=== PATIENT | male | born 1975 ===

== ENCOUNTER → 2020-06-09 08:37 | Outpatient (BNVA) | payer OTHER, SELFPAY | PROVIDERS: PCP Physician Assistant Medical; Referring Provider Physician Assistant; Visit Provider Surgery | DX: Z76.89 Persons encountering health services in other specified circumstances (principal) ==

== ENCOUNTER 2020-06-14 16:12 | Outpatient (REF) | payer OTHER, SELFPAY ==
--- NOTE | 2020-06-14 16:14 | CT_ITS ---
EXAMINATION: CT ABDOMEN AND PELVIS WITHOUT CONTRAST CLINICAL INFORMATION: Lower abdominal pain COMPARISON: 09/12/2019 TECHNIQUE: Multidetector volumetric imaging was performed from the superior aspect of the liver through the pubic symphysis. Sagittal and coronal reformatted images were obtained on the technologist's workstation. This CT examination was performed using dose optimization techniques as appropriate, variously including the following: *Automated exposure control *Adjustment of mA and/or kV according to patient size (this includes techniques or standardized protocols for targeted exams where dose is matched to indication/reason for exam; i.e. extremities or head) *Use of iterative reconstruction technique DLP: 365 mGy-cm FINDINGS: LUNG BASES: Calcified left lower lobe granuloma. LIVER, GALLBLADDER, AND BILIARY TREE: Liver is slightly hypoattenuating relative to the spleen suggesting underlying hepatic steatosis. There is likely focal fatty sparing adjacent the gallbladder fossa. No suspicious or concerning focal liver lesion seen. The gallbladder is unremarkable with no evidence of radiopaque gallstones, gallbladder wall thickening, or obvious pericholecystic inflammatory changes. PANCREAS: Unremarkable. SPLEEN: Unremarkable. ADRENAL GLANDS: No adrenal mass. KIDNEYS AND URETERS: Punctate 1 mm left upper pole renal calculus. 3 mm left mid-lower renal calculus. There are 2 right mid-lower calculi measuring 1 mm and 2 mm. No hydronephrosis or hydroureter seen no ureteral calculi are present.. BLADDER: No bladder calculi. GASTROINTESTINAL TRACT: Stomach and small bowel are nondilated. Normal appendix. Is a surgical anastomosis across the proximal transverse colon and another anastomosis across the sigmoid colon. Both appear patent. There is a mild stool burden. Scattered colonic diverticulosis. No evidence of colitis or diverticulitis ABDOMINAL WALL: Fat-containing umbilical hernia. Midline laparotomy changes. There are is scarring of the anterior right lower quadrant possibly a site of prior stoma. Fat-containing direct left inguinal hernia. LYMPH NODES: No lymphadenopathy. VASCULAR: Normal caliber abdominal aorta. PELVIC VISCERA: Coarse prostatic calcifications are present. Mild prostatomegaly. OSSEOUS STRUCTURES: Multilevel degenerative changes of the thoracolumbar spine. No acute or suspicious osseous abnormality. CT/CT abdomen pelvis wo con IMPRESSION: No acute CT findings to explain lower abdominal pain. No significant change from prior study 09/12/2019. Tiny nonobstructing bilateral renal calculi 1-3 mm. No evidence of obstructive uropathy. Colonic anastomoses of the proximal transverse colon and sigmoid colon are seen. These are patent without evidence of obstruction or perforation. No evidence of bowel obstruction, colitis, or diverticulitis.
== END 2020-06-14 16:13 | disposition home or self-care (01) ==
LOC: HO.CT 16:12
PROVIDERS: Visit Provider Surgery
DX: R10.30 Lower abdominal pain, unspecified (principal)
CPT/HCPCS: 74176

== ENCOUNTER → 2020-06-22 13:30 | Outpatient (BNVA) | payer OTHER, SELFPAY | PROVIDERS: PCP Physician Assistant Medical; Visit Provider Surgery | DX: Z76.89 Persons encountering health services in other specified circumstances (principal) ==

== ENCOUNTER → 2021-10-04 12:03 | Outpatient (BNVA) | payer OTHER, SELFPAY | PROVIDERS: PCP Physician Assistant Medical; Referring Provider Physician Assistant Medical; Visit Provider Surgery | DX: K64.9 Unspecified hemorrhoids (principal) | CPT/HCPCS: 46600 ==

== ENCOUNTER 2022-03-11 08:13 | Emergency (ER) | payer OTHER, SELFPAY ==
[2022-03-11 08:36] VITALS: BP 143/91; PULSE 100; RESP 18; TEMP 36.9; O2SAT 98
[2022-03-11 11:09] VITALS: BP 155/89; PULSE 96; RESP 18; TEMP 36.8; O2SAT 99; BMI 27.3
[2022-03-11 12:42] VITALS: BP 147/86; PULSE 98; RESP 20; TEMP 36.9; O2SAT 99
--- NOTE | 2022-03-11 13:08 | ED_ITS ---
HPI - General Adult General Chief complaint: Extremity Injury, Lower Stated complaint: R side back pain down to leg Time Seen by Provider: 03/11/22 12:46 Source: patient Mode of arrival: ambulatory Limitations: no limitations History of Present Illness HPI narrative: For 46-year-old male presents to the ED for back pain radiating down right leg. Patient states history of back arthritis. Patient states having these symptoms before but has exacerbated the past 2 weeks. Patient also states pain on range of motion and after heavy lifting. Patient denies any history of urinary/bowel incontinence, abdominal pain, nausea, vomiting, recent trauma, hematuria, dysuria, fever, or chills. Patient denies any history of immunocompromised disease or IV drug use. Patient states last did cocaine ( nostril) in 1994. Patient denies dragging of leg. Related Data Home Medications Medication Instructions Recorded Confirmed levofloxacin 750 mg tablet 750 mg PO DAILY 06/09/20 10/04/21 metformin 500 mg tablet mg PO 06/09/20 10/04/21 cetirizine 10 mg tablet 10 mg PO DAILY 10/04/21 10/04/21 Previous Rx's Medication Instructions Recorded cyclobenzaprine 10 mg tablet 10 mg PO TID PRN muscle spasm 7 03/11/22 days #21 tabs naproxen 500 mg tablet 500 mg PO BID PRN pain 10 days #20 03/11/22 tabs prednisone 20 mg tablet 40 mg PO DAILY 5 days #10 tabs 03/11/22 Allergies Allergy/AdvReac Type Severity Reaction Status Date / Time No Known Allergies Allergy Verified 10/04/21 13:00 [No Known Allergies*] Review of Systems Review of Systems: Back pain radiating down right leg Yes all other systems are reviewed and are negative [facility] Past Medical History Medical History (Updated 03/11/22 @ 13:40 by MANNY Lea) Bleeding hemorrhoids Diverticular disease Lower abdominal pain Surgical History History of colon resection History of ileostomy Family History Family History Father History of stomach ulcers Social History Social History Alcohol intake: never Patient Tobacco Use Status: Never used Tobacco Use of substances other than those prescribed or required for medical reasons: No Advance Directives: No Advance Directives Information Provided: Yes Physical Exam ED Vital Signs: Vital Signs - 24 hr 03/11/22 08:36 03/11/22 11:09 03/11/22 12:42 Temperature 98.4 F 98.2 F 98.4 F Pulse Rate 100 96 98 Respiratory Rate 18 18 20 Blood Pressure 143/91 H 155/89 H 147/86 H Pulse Oximetry 98 99 99 Oxygen Delivery Method Room Air Room Air Room Air 03/11/22 14:32 Temperature 98.0 F Pulse Rate 84 Respiratory Rate 20 Blood Pressure 143/86 H Pulse Oximetry 96 Oxygen Delivery Method Room Air BMI result Body Mass Index 27.3 Const General: cooperative, healthy appearing, comfortable, no acute distress, well developed, alert, awake and Physically active Orientation/consciousness: patient oriented x3 HENMT Head: Yes normal to inspection, Yes No palpable skull fracture present, Yes normocephalic, Yes atraumatic and No abrasion Eyes General: appearance normal, both eyes and all related structures Neck Neck: Yes normal visual inspection, Yes full ROM, Yes no lymphadenopathy, Yes no meningeal signs, Yes trachea midline, Yes supple, No anterior neck swelling and No tender Chest Chest palpation & inspection: normal inspection of the chest and normal palpation of entire chest wall Resp Effort & Inspection: normal respiratory effort and able to speak in complete sentences Auscultation: clear to auscultation bilaterally Cardio Jugular venous distension: no JVD Heart sounds: S1 normal heart sound present and S2 normal heart sound present GI Inspection: Yes normal to inspection and No abdominal wall ecchymosis Palpation (GI): Soft to palpation, not firm, nontender, no guarding and not rigid General: No CVA tenderness and Yes no CVA tenderness Back/Spine/Pelvis Other: positive straight leg test ( right) Back: no CVA tenderness, No CVA tenderness and back tenderness (lumbar spine tenderness) Skin General skin exam: no rashes or lesions noted and elasticity normal Neuro General: patient oriented x3, gait normal, no meningeal signs and CN's II-XI intact bilaterally Cranial nerves: Yes CN's II-XII intact bilaterally Extrem General: Yes normal to inspection and Yes full ROM Psych Appearance: grossly normal, well kempt and not disheveled Course Course Course Narrative: CT scan 2019 showed patient had thoracal lumbar degenerative arthritis of spine. No recent trauma. no neuro deficits. not suspecting cauda equina or epidural abscess. No trauma. I do not suspect a spinal fracture. No need for new imaging Reevaluation(s) Reevaluation #1: Patient discharged with pain meds and follow-up with primary care provider. Time: 13:37 Medical Decision Making MDM Narrative Medical decision making narrative: Lumbar radiculopathy Discharge Plan Discharge Clinical Impression: Lumbar radiculopathy Patient Disposition: Home, Self-Care Instructions: Lumbar Radiculopathy (ED) Additional Instructions: Return to the ED immediately for any urinary/bowel incontinence, severe pain, inability to walk, abdominal pain, nausea, vomiting, flank pain, dysuria, hematuria, or any other concerning symptoms. please follow up with PCP. Prescriptions: New naproxen 500 mg tablet 500 mg PO BID PRN (Reason: pain) 10 Days Qty: 20 0RF prednisone 20 mg tablet 40 mg PO DAILY 5 Days Qty: 10 0RF cyclobenzaprine 10 mg tablet 10 mg PO TID PRN (Reason: muscle spasm) 7 Days Qty: 21 0RF Rx Instructions: side effect is drowsiness. Do not take at work or while driving. No Action levofloxacin 750 mg tablet 750 mg PO DAILY metformin 500 mg tablet PO cetirizine 10 mg tablet 10 mg PO DAILY Stand Alone Forms: Work/School Release Interventions: ED Discharge Assessment Last Done: 03/11/22 14:52 Discharge Date/Time: 03/11/22 14:52 Print Language: [place]
[2022-03-11] MEDS: predniSONE 20 MG TABLET 40 MG PO (13:17)
[2022-03-11] MEDS: Cyclobenzaprine HCl 10 MG TABLET PO (13:17)
[2022-03-11] MEDS: Ibuprofen 800 MG TABLET PO (13:32)
[2022-03-11 14:32] VITALS: BP 143/86; PULSE 84; RESP 20; TEMP 36.7; O2SAT 96
== END 2022-03-11 14:52 | disposition home or self-care (01) ==
PROVIDERS: Emergency Provider Emergency Medicine
DX: M54.16 Radiculopathy, lumbar region (principal); M54.50 Low back pain, unspecified
CPT/HCPCS: 99283; 99284

== ENCOUNTER 2023-08-06 13:00 | Outpatient (REF) | payer OTHER, SELFPAY | END 2023-08-06 13:01 | disposition home or self-care (01) | LOC: HO.HOSX 13:00 | PROVIDERS: Visit Provider Orthopaedic Surgery | DX: R20.0 Anesthesia of skin (principal); M18.12 Unilateral primary osteoarthritis of first carpometacarpal joint, left hand | CPT/HCPCS: 73130 ==

== ENCOUNTER 2023-08-06 13:00 | Outpatient (AMB) | payer OTHER, SELFPAY ==
--- NOTE | 2023-08-06 13:02 | MHC.OFFVIS ---
Intake Intake Visit Reasons: CORRECTIONS CORPORAL- B/L Hand pain Intake Note: Radhika 48 yr old male presents today for a new patient visit for bilateral hand pain evaluation, he is right hand dominant. States his left hand is worse and his pain is rated 10/10 and his right hand is 9/10. He reports numbness and tingling in both hands, he reports range of motion and mobility issues. At night he has pain as well. Allergies No Known Allergies [No Known Allergies*] Allergy (Verified 08/06/23 13:10) Medication List - Last Reconciled 08/06/23 by Sara Lopez, RN cetirizine 10 mg PO DAILY cyclobenzaprine 10 mg PO TID PRN 7 days levofloxacin 750 mg PO DAILY metformin mg PO naproxen 500 mg PO BID PRN 10 days prednisone 40 mg (2 x 20 mg) PO DAILY 5 days HPI CORRECTIONS CORPORAL- B/L Hand pain HPI Details Radhika is a 48 year old right hand dominant man who presents with complaints of bilateral hand pain & numbness. He complains of severe pain in his hands, L>R, along with limited ROM & numbness in his fingers. 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 This job involves frequent heavy lifting activities. He has difficulty with sleeping at night due to his numbness and pain. He says he was scheduled for a carpal tunnel release in ~2008 but he says he never showed up for surgery. He also has a hx of hand arthritis. [facility] Medical History (Updated 08/06/23 @ 13:45 by Yao Wills) Colostomy in place Hemorrhoids without complication Bleeding hemorrhoids Lower abdominal pain Diverticular disease Surgical History (Updated 08/06/23 @ 13:12 by Sara Lopez RN) H/O hernia repair History of ileostomy History of colon resection Family History Father History of stomach ulcers Social History Alcohol intake: never Patient Tobacco Use Status: Never used Tobacco Review of Systems Const All systems reviewed & are unremarkable except as noted in HPI and below Physical Exam Const General: cooperative, healthy appearing and no acute distress Orientation/consciousness: patient oriented x3 HEENT Head: Yes normocephalic and Yes atraumatic Eyes EOM: EOMs intact bilaterally Resp Effort & Inspection: normal respiratory effort and able to speak in complete sentences Cardio Jugular venous distension: no JVD Skin General skin exam: turgor normal Rashes: no rashes Neuro General: patient oriented x3 Extrem Other: Evaluation of Bilateral Upper Extremity: The patient is alert, oriented, and in no acute distress Neuro: Numbness in the median nerve distribution. Normal sensation in the ulnar nerve distribution Vascular: Cap refill brisk ROM: He can make a fist and extend all his digits No locking or catching Skin: No lacerations or abrasions. General: No Ecchymosis. No Erythema or evidence of infection. Tender over the left basal joint No tenderness over the 1st dorsal compartment or thumb a1 kieran Radiographs: 3 views of the left hand, with attention to the thumb, were taken and viewed by me today in clinic. They show some basal joint osteoarthritis with joint space narrowing and some subluxation. Psych Appearance: grossly normal Affect: normal affect Attitude: cooperative Assessment & Plan Assessment & Plan (1) Bilateral hand numbness: Code(s): R20.0 - Anesthesia of skin (2) Osteoarthritis of carpometacarpal joint of left thumb: Code(s): M18.12 - Unilateral primary osteoarthritis of first carpometacarpal joint, left hand Plan Assessment & Plan: 1. Bilateral hand numbness, L>R In the median nerve distribution Symptoms intermittent, but daily, worse at night I educated him about carpal & cubital tunnel syndrome He says he was scheduled for a carpal tunnel release in ~2008, which he did not do. I ordered a NCS to assess for peripheral nerve compression He will follow up when completed for review 2. Left basal joint OA I educated him about this condition I discussed operative and non-operative treatment options, including steroid injections. I discussed the importance of maintaining his motion and activity modification. He should limit or avoid any heavy or repetitive gripping activities when possible. He was fitted for a comfort cool splint to wear with daily activity, and he will take time to consider the possibility of steroid injections in the future if his symptoms persist or worsen. Scribed for Debbie Mcdonald MD by Yao Wills, certified medical coder, on 08/06/23 at 1:45 PM, EST. Orders: Orders XR hand LT min 3V Today M79.642 - Pain in left hand NE nerve conduction velocity Today R20.0 - Anesthesia of skin, R20.2 - Paresthesia of skin Coding Level of Care Code New Pt Level 4 (42618) Diagnoses Bilateral hand numbness R20.0 Osteoarthritis of carpometacarpal joint of left thumb M18.12
== END 2023-08-06 14:23 | disposition home or self-care (01) ==
PROVIDERS: Visit Provider Orthopaedic Surgery
DX: M18.12 Unilateral primary osteoarthritis of first carpometacarpal joint, left hand (principal); R20.0 Anesthesia of skin
CPT/HCPCS: 99203

== ENCOUNTER 2023-09-19 14:01 | Outpatient (REF) | payer OTHER, SELFPAY ==
--- NOTE | 2023-09-19 14:03 | EMG_ITS ---
Chief complaint: Bilateral hand numbness. Diagnosed Carpal Tunnel Syndrome before. Reason for referral: Evaluate for Carpal Tunnel Syndrome Referred by: Dr. Mcdonald Procedure done: Bilateral upper extremities NCS/EMG Precautions and/or limitations: None The limb temperature was monitored continuously and remained between 32-36 degrees C during the performance of the NCS. Nerve Conduction Studies Anti Sensory Summary Table ?Stim Site NR Onset (ms) Norm Onset (ms) Peak (ms) Norm Peak (ms) O-P Amp (?V) Norm O-P Amp Site1 Site2 Delta-0 (ms) Dist (cm) Daniele (m/s) Norm Daniele (m/s) Left Median Anti Sensory (2nd Digit) Wrist MTDD ? 4.0 5.0 <3.6 9.8 >10 Wrist 2nd Digit 4.0 14.0 35 Right Median Anti Sensory (2nd Digit) Wrist ? 3.8 4.5 <3.6 31.7 >10 Wrist 2nd Digit 3.8 14.0 37 Right Radial Anti Sensory (Thumb) Forearm ? 1.9 2.2 <3.1 14.1 Forearm Thumb 1.9 0.0 Left Ulnar Anti Sensory (5th Digit) Wrist ? 2.4 2.9 <3.7 20.3 >15.0 Wrist 5th Digit 2.4 14.0 58 Right Ulnar Anti Sensory (5th Digit) Wrist ? 2.5 3.4 <3.7 15.5 >15.0 Wrist 5th Digit 2.5 14.0 56 Motor Summary Table ?Stim Site NR Onset (ms) Norm Onset (ms) O-P Amp (mV) Norm O-P Amp iAmp (mV) Amp (1st) (%) Site1 Site2 Delta-0 (ms) Dist (cm) Daniele (m/s) Norm Daniele (m/s) Left Median Motor (Abd Poll Brev) Wrist ? 5.1 <3.9 7.8 >4.5 8.8 100.0 Elbow Wrist 3.8 18.5 49 >45 Elbow ? 8.9 7.7 8.8 98.7 Right Median Motor (Abd Poll Brev) Wrist ? 4.6 <3.9 11.1 >4.5 12.2 100.0 Elbow Wrist 3.4 19.0 56 >45 Elbow ? 8.0 10.3 10.8 92.8 Left Ulnar Motor (Abd Dig Minimi) Wrist ? 2.6 <3.0 9.2 >5 12.8 100.0 B Elbow Wrist 3.0 17.0 57 >45 B Elbow ? 5.6 8.0 11.6 87.0 A Elbow B Elbow 1.7 10.0 59 >45 A Elbow ? 7.3 7.5 10.7 81.5 Right Ulnar Motor (Abd Dig Minimi) Wrist ? 3.0 <3.0 10.3 >5 12.5 100.0 B Elbow Wrist 3.0 18.0 60 >45 B Elbow ? 6.0 9.6 11.7 93.2 A Elbow B Elbow 1.2 10.0 83 >45 A Elbow ? 7.2 9.5 11.6 92.2 EMG ?Side Muscle Nerve Root Ins Act Fibs Psw Amp Dur Poly Recrt Int Pat Comment Right 1stDorInt Ulnar C8-T1 Nml Nml Nml Nml Nml 0 Nml Complete Right FlexCarRad Median C6-7 Nml Nml Nml Nml Nml 0 Nml Complete Right Biceps Musculocut C5-6 Nml Nml Nml Nml Nml 0 Nml Complete Right Triceps Radial C6-7-8 Nml Nml Nml Nml Nml 0 Nml Complete Right Deltoid Axillary C5-6 Nml Nml Nml Nml Nml 0 Nml Complete Left 1stDorInt Ulnar C8-T1 Nml Nml Nml Nml Nml 0 Nml Complete Left FlexCarRad Median C6-7 Nml Nml Nml Nml Nml 0 Nml Complete Left Biceps Musculocut C5-6 Nml Nml Nml Nml Nml 0 Nml Complete Left Triceps Radial C6-7-8 Nml Nml Nml Nml Nml 0 Nml Complete Left Deltoid Axillary C5-6 Nml Nml Nml Nml Nml 0 Nml Complete FINDINGS: Bilateral median motor nerves showed prolonged distal latency, normal amplitude and normal conduction velocity. Right median sensory nerve showed prolonged peak latency. Left median sensory nerve showed prolonged peak latency and small amplitude. All other nerves tested were within normal. Concentric needle EMG was performed in selected muscles of the bilateral upper extremities. Study did not reveal signs of electric abnormalities as shown in the table below. IMPRESSION: 1. This is an abnormal study. 2. There is electrodiagnostic evidence for bilateral moderate-severe median neuropathy at the wrist, consistent with carpal tunnel syndrome. 3. There is no electrodiagnostic evidence for ulnar neuropathy, brachial plexopathy, or cervical radiculopathy. Thank you for your kind referral. Ratna Campbell MD, JEANA Board Certified, [place] Board of Physical Medicine and Rehabilitation (ABPMR) Board Certified, [place] Board of Electrodiagnostic Medicine (ABEM) CODIN [id number] x 2
== END 2023-09-19 14:02 | disposition home or self-care (01) ==
LOC: HO.NEURO 14:01
PROVIDERS: Visit Provider Orthopaedic Surgery
DX: R20.0 Anesthesia of skin (principal); R20.2 Paresthesia of skin
CPT/HCPCS: 95886; 95911

== ENCOUNTER → 2023-09-19 14:03 | Outpatient (BNV) | payer OTHER, SELFPAY | PROVIDERS: Visit Provider Physical Medicine & Rehabilitation | DX: G56.03 Carpal tunnel syndrome, bilateral upper limbs (principal); G56.13 Other lesions of median nerve, bilateral upper limbs | CPT/HCPCS: 95886; 95911 ==

== ENCOUNTER 2023-10-30 14:00 | Outpatient (AMB) | payer OTHER, SELFPAY ==
--- NOTE | 2023-10-30 15:12 | A.OFFVIS_ITS ---
Intake Vital Signs 10/30/23 15:21 Height 5 ft 4 in Weight 159 lb BMI 27.3 Intake Visit Reasons: OV - B/L EMG review Intake Note: Radhika 48 yr old male presents today for his EMG review. States he would like to move forward with surgery i his left hand first. Allergies No Known Allergies [No Known Allergies*] Allergy (Verified 08/06/23 13:10) HPI OV - B/L EMG review HPI Details Radhika is a 48 year old right hand dominant man who returns for a NCS review of his bilateral hand numbness. He complains of numbness in the thumb, index, and middle fingers of his hands bilaterally. Symptoms intermittent, but daily, worse at night. He says he has new pain in his deltoids along with limited motion of his shoulders following his NCS appointment with Dr. Cox on 09/19/23. After the needles were placed in his lateral shoulders, he had a new onset of pain in his bilateral lateral deltoids. He says his pain is worse in the mornings. He has difficulty raising his arms above his head. 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 This job involves frequent heavy lifting activities, which is difficult for him. He says he was scheduled for a carpal tunnel release in ~2008 but he says he never showed up for surgery. He also has a hx of hand arthritis. [facility] Medical History (Updated 10/30/23 @ 15:43 by Yao Wills) Colostomy in place Hemorrhoids without complication Bleeding hemorrhoids Lower abdominal pain Diverticular disease Surgical History H/O hernia repair History of ileostomy History of colon resection Family History Father History of stomach ulcers Social History Alcohol intake: never Patient Tobacco Use Status: Never used Tobacco Physical Exam Vital Signs: BMI result Body Mass Index 27.3 Extrem Other: Evaluation of Bilateral Upper Extremity: The patient is alert, oriented, and in no acute distress Neuro: Sensation not quite normal in the median nerve distribution bilaterally. Normal sensation in the ulnar nerve distribution No thenar or intrinsic wasting Good APB muscle belly firing and good finger cross Vascular: Cap refill brisk ROM: He can make a fist and extend all his digits No locking or catching Tender over the left basal joint Positive shoulder sign. No tenderness over the 1st dorsal compartment or thumb a1 kieran Limited shoulder abduction to ~90 degrees bilaterally Nerve Conduction Study: IMPRESSION: 1. This is an abnormal study. 2. There is electrodiagnostic evidence for bilateral moderate-severe median neuropathy at the wrist, consistent with carpal tunnel syndrome. 3. There is no electrodiagnostic evidence for ulnar neuropathy, brachial ple xopathy, or cervical radiculopathy. Ratna Campbell MD, JEANA 09/19/23 Assessment & Plan Assessment & Plan (1) Carpal tunnel syndrome of left wrist: Code(s): G56.02 - Carpal tunnel syndrome, left upper limb (2) Carpal tunnel syndrome of right wrist: Code(s): G56.01 - Carpal tunnel syndrome, right upper limb (3) Osteoarthritis of carpometacarpal joint of left thumb: Code(s): M18.12 - Unilateral primary osteoarthritis of first carpometacarpal joint, left hand (4) Pain in deltoid, bilateral: Code(s): M79.18 - Myalgia, other site Plan Assessment & Plan: 1. Left carpal tunnel syndrome, moderate-severe Symptoms intermittent, but daily, worse at night 2. Right carpal tunnel syndrome, moderate-severe Symptoms intermittent, but daily, worse at night I educated him about this condition I discussed operative and non-operative treatment options The patient would like to proceed with surgery, beginning with the left side. He will follow up to discuss surgery for his right side when he has recovered from surgery. The risks and benefits of operative treatment were discussed with the patient and the patient wishes to proceed with surgery. These risks include, but are not limited to risk of damage to blood vessels, nerves, tendons, infection, recurrence, incomplete relief of preoperative symptoms, persistent pain, possible need for further surgery and the risks associated with regional blocks and anesthesia. The plan is to take the patient to the operating room sometime in the next few weeks for the following procedures: 1. Left carpal tunnel release, under local All of the preoperative paperwork including the consent was reviewed today. All the patient's questions were answered. 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 He says he needs to coordinate this with work as a co-worker will be out on paternity leave. He would like a note for work concerning his upcoming surgery He denies Diabetes, blood thinners, asthma, heart, lung, kidney issues 3. Left basal joint OA I discussed the importance of maintaining his motion and activity modification. He should limit or avoid any heavy or repetitive gripping activities when possible. He will take time to consider the possibility of steroid injections in the future if his symptoms persist or worsen. 4. Bilateral deltoid pain and limited Abduction He says this began following his NCS appointment with Dr. Cox, done on 09/19/23. I encouraged him to work on ROM exercises at home, as he had difficulty raiding his arms above his head He will make an appointment to follow up with Dr. Cox Scribed for Debbie Mcdonald MD by Yao Wills, emergency medical services coordinator, on 10/30/23 at 3:30 PM, EST. Coding Level of Care Code Est Pt Level 4 (23834) Diagnoses Carpal tunnel syndrome of left wrist G56.02 Carpal tunnel syndrome of right wrist G56.01 Osteoarthritis of carpometacarpal joint of left thumb M18.12 Pain in deltoid, bilateral M79.18
[2023-10-30 15:21] VITALS: BMI 27.3
== END 2023-10-30 15:37 | disposition home or self-care (01) ==
PROVIDERS: Visit Provider Orthopaedic Surgery
DX: G56.03 Carpal tunnel syndrome, bilateral upper limbs (principal); M18.12 Unilateral primary osteoarthritis of first carpometacarpal joint, left hand; M79.18 Myalgia, other site
CPT/HCPCS: 99214

== ENCOUNTER → 2023-10-30 14:00 | Outpatient (BNVA) | payer OTHER, SELFPAY | PROVIDERS: Visit Provider Orthopaedic Surgery ==

== ENCOUNTER 2024-02-19 10:57 | Outpatient (AMB) | payer OTHER, SELFPAY ==
--- NOTE | 2024-02-19 11:18 | A.OFFVIS_ITS ---
Intake Visit Reasons: Preop LT CTR 03/02/24 AR Intake Note: Radhika is a 48 year old right hand dominant male who presents today for a pre op appointment for his LT CTR 03/02/24 AR. Allergies No Known Allergies [No Known Allergies*] Allergy (Verified 02/19/24 11:21) HPI HPI Preop LT CTR 03/02/24 AR: Details: 48-year-old male who presents in the office today for his preoperative history and physical exam prior to a left carpal tunnel release to be performed on 03/02/[address] Debbie Mcdonald.? ? Patient has no known allergy history.? ? Patient is currently taking, as follows:? -Cetirizine 10 mg PO daily? ? Patient has a medical history, as follows:? -Colostomy in place? ? Patient has a surgical history, as follows:? -Hx of hernia repair? -Hx of ileostomy? -Hx of colon resection? PFS Medical History (Updated 10/30/23 @ 15:43 by Yao Wills) Colostomy in place Hemorrhoids without complication Bleeding hemorrhoids Lower abdominal pain Diverticular disease Surgical History H/O hernia repair History of ileostomy History of colon resection Family History Father History of stomach ulcers Social History (Updated 02/19/24 @ 11:23 by Norberto Lux) Alcohol intake: never Patient Tobacco Use Status: Never used Tobacco Current occupational status: employed Current occupation: [employer]/ right hand dominant Review of Systems Const All systems reviewed & are unremarkable except as noted in HPI and below Physical Exam Const General: cooperative, healthy appearing and no acute distress Orientation/consciousness: patient oriented x3 HEENT Head: Yes normocephalic and Yes atraumatic Eyes EOM: EOMs intact bilaterally Resp Effort & Inspection: normal respiratory effort and able to speak in complete sentences Cardio Jugular venous distension: no JVD Skin General skin exam: turgor normal Rashes: no rashes Neuro General: patient oriented x3 Extrem Other: Evaluation of Bilateral Upper Extremity: The patient is alert, oriented, and in no acute distress Neuro: Sensation not quite normal in the median nerve distribution bilaterally. Normal sensation in the ulnar nerve distribution No thenar or intrinsic wasting Good APB muscle belly firing and good finger cross Vascular: Cap refill brisk ROM: He can make a fist and extend all his digits No locking or catching Tender over the left basal joint Positive shoulder sign. No tenderness over the 1st dorsal compartment or thumb a1 kieran Limited shoulder abduction to ~90 degrees bilaterally Nerve Conduction Study: IMPRESSION: 1. This is an abnormal study. 2. There is electrodiagnostic evidence for bilateral moderate-severe median neuropathy at the wrist, consistent with carpal tunnel syndrome. 3. There is no electrodiagnostic evidence for ulnar neuropathy, brachial plexopathy, or cervical radiculopathy. Ratna Campbell MD, JEANA 09/19/23 Assessment & Plan Assessment & Plan (1) Carpal tunnel syndrome of left wrist: Code(s): G56.02 - Carpal tunnel syndrome, left upper limb Category: Medical (2) Osteoarthritis of carpometacarpal joint of left thumb: Code(s): M18.12 - Unilateral primary osteoarthritis of first carpometacarpal joint, left hand Category: Medical (3) Pain in deltoid, bilateral: Code(s): M79.18 - Myalgia, other site Category: Medical (4) Carpal tunnel syndrome of right wrist: Code(s): G56.01 - Carpal tunnel syndrome, right upper limb Category: Medical Plan Mr. Arnie Dorado is a 48-year-old male who presents in the office today for his preoperative history and physical exam prior to a left carpal tunnel release to be performed on 03/02/[address] Debbie Mcdonald.? ? Patient has no known allergy history.? ? Patient is currently taking, as follows:? -Cetirizine 10 mg PO daily? ? Patient has a medical history, as follows:? -Colostomy in place? ? Patient has a surgical history, as follows:? -Hx of hernia repair? -Hx of ileostomy? -Hx of colon resection? ? I discussed in detail the procedure and what to expect pre and post operatively. We discussed the risks, benefits, alternatives to the surgery and the rehabilitation course. The risks include infection, bleeding, nerve injury, ongoing pain, swelling, and stiffness, perioperative risk of injury to bones and soft tissues, and blood clots.?? ? I have answered all questions and with their understanding they have consented to move forward with a left carpal tunnel release to be performed on 03/02/[address] Debbie Mcdonald.? ? ? Follow-up will be at the post operative appointment on 03/17/2024 at 12:30 pm, or sooner if needed.? Patient Instructions: Scribed by Pinky Reyes medical laboratory technicians, for Rita Carl SPEARS on 02/19/2024 at 11:06 am, EST.? Coding Level of Care Code Global (17948) Diagnoses Carpal tunnel syndrome of left wrist G56.02 Osteoarthritis of carpometacarpal joint of left thumb M18.12 Pain in deltoid, bilateral M79.18 Carpal tunnel syndrome of right wrist G56.01
== END 2024-02-19 11:29 | disposition home or self-care (01) ==
PROVIDERS: Visit Provider Physician Assistant
DX: G56.03 Carpal tunnel syndrome, bilateral upper limbs (principal); M18.12 Unilateral primary osteoarthritis of first carpometacarpal joint, left hand; M79.18 Myalgia, other site
CPT/HCPCS: 99024

== ENCOUNTER → 2024-02-19 10:57 | Outpatient (BNVA) | payer OTHER, SELFPAY | PROVIDERS: Visit Provider Physician Assistant ==

== ENCOUNTER 2024-03-02 08:47 | Day surgery (SDC) | payer OTHER, SELFPAY ==
[2024-03-02 08:58] VITALS: BP 131/86; PULSE 71; RESP 16; TEMP 37; O2SAT 98; BMI 27.1
--- NOTE | 2024-03-02 09:33 | P.OP_ITS ---
Operative Note Operative Note Date of Service: 03/02/24 Narrative: Preop diagnosis: 1. Left Carpal tunnel syndrome Postop diagnosis: same Procedure: 1. Left Carpal tunnel release Surgeon: Debbie Mcdonald MD Hand Cell Tuber: None Anesthesia: local block using 1% lidocaine with epinephrine Findings: Thickened transverse carpal ligament. EBL: Less than 5 mL Specimens: None Complications: None Disposition: Brought to recovery room in stable condition Plan: Follow-up for 10-14 days for wound check and suture removal Indications: The patient is 48 years old, with left carpal tunnel syndrome that has been unresponsive to nonoperative management. The risks and benefits of operative treatment including but not limited to risk of damage to blood vessels, nerves, tendons, infection, persistent pain, persistent symptoms, or possible need for additional surgery were discussed with the patient and the patient wishes to proceed with surgery. Procedure: Once consent was obtained a local block was performed using a combination of 1% lidocaine with epinephrine. The patient was then brought back to the operating suite and placed on the operative table in supine position. The left upper extremity was prepped and draped in a standard surgical fashion. Once assured that we had a good block, a 2.0 cm longitudinal incision was made centered over the carpal tunnel. The incision was made through the skin to the subcutaneous tissues using a #15 blade. Dissection was made down to the level of the transverse carpal ligament with care being taken to protect the palmar cutaneous nerve. Once the transverse carpal ligament was clearly visualized, a longitudinal incision was made in the transverse carpal ligament 1st using a #15 blade, then using tenotomy scissors under direct visualization. Care was taken to look for and protect the motor branch of the median nerve when seen in this area. Once satisfied with our carpal tunnel release the wound was copiously irrigated with normal saline and hemostasis was obtained with a brief period of local pressure. The skin edges were reapproximated with some 5.0 nylon suture material and a sterile dressing was applied. The patient appears to have tolerated the procedure well and with no complicatio ns. All digits were well vascularized at the conclusion of the case.
--- NOTE | 2024-03-02 09:33 | MHC.SHP ---
Pre-Procedural Eval Section A - 24 Hr Update-Section A only Date of Service: 03/02/24 The patient is an INPATIENT: No Changes since office visit: No Cold of Flu in the past 2 weeks, No New Medical Problems, No Changes in Medication and No Patient answered all questions The patient has been examined within 24 hours of the surgical procedure. The History & Physical has been completed within 30 days and I have reviewed it.: Yes Section B - Complete if H&P > 30 days Chief Complaint: Carpal tunnel syndrome, left upper limb Allergies: Allergies Allergy/AdvReac Type Severity Reaction Status Date / Time No Known Allergies Allergy Verified 02/19/24 11:21 [No Known Allergies*] Exam Exam Comment: Left carpal tunnel syndrome Plan Diagnosis/Plan: Unchanged I have reviewed the history and physical and performed a pertinent physical examination on my patient. No changes have occurred unless specified. Time Spent With Patient Time: Total time managing care of this patient today ____ minutes.
[2024-03-02 11:30] VITALS: BP 135/61; PULSE 86; RESP 16; O2SAT 98
== END 2024-03-02 11:32 | disposition home or self-care (01) ==
PROVIDERS: Visit Provider Orthopaedic Surgery
PROC: (CPT 64721; principal; 2024-03-02 10:30)
DX: G56.02 Carpal tunnel syndrome, left upper limb (principal); M18.12 Unilateral primary osteoarthritis of first carpometacarpal joint, left hand; M79.18 Myalgia, other site; K57.30 Diverticulosis of large intestine without perforation or abscess without bleeding; K64.8 Other hemorrhoids; Z90.49 Acquired absence of other specified parts of digestive tract; Z93.3 Colostomy status; Z93.2 Ileostomy status; Z79.899 Other long term (current) drug therapy; Z98.890 Other specified postprocedural states
CPT/HCPCS: 64721; J0171; J2795

== ENCOUNTER → 2024-03-02 08:47 | Outpatient (BNV) | payer OTHER, SELFPAY | PROVIDERS: Visit Provider Orthopaedic Surgery | DX: G56.02 Carpal tunnel syndrome, left upper limb (principal) | CPT/HCPCS: 64721 ==

== ENCOUNTER 2024-03-17 11:49 | Outpatient (AMB) | payer OTHER, SELFPAY ==
--- NOTE | 2024-03-17 12:01 | A.OFFVIS_ITS ---
Vital Signs 03/17/24 12:06 Handedness Right Intake Visit Reasons: PO LT CTR 03/02/24 AR Intake Note: Radhika is a 48 year right hand dominant male who presents today post-operatively s/p left CTR done 03/02/[address] Mcdonald. Patient reports numbness and tingling has improved. Patient states he feels discomfort around his incision when he makes a fist but says he expects that after the surgery. Stitches removed in office and steri strips applied. Allergies No Known Allergies [No Known Allergies*] Allergy (Verified 03/17/24 12:06) HPI HPI PO LT CTR 03/02/24 AR: Details: Radhika is a 48 year old right hand dominant man who returns S/P left carpal tunnel release, DOS: 03/02/24. He says he is doing well and his sensation has improved. He has some discomfort about his incision site but he says this is tolerable. He complains of numbness in the thumb, index, and middle fingers of his right hand. Symptoms intermittent, but daily, worse at night. 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 This job involves frequent heavy lifting activities, which is difficult for him. He says he does not think his employer will let him all for surgery for another year. He also has a hx of hand arthritis. [facility] Medical History Colostomy in place Hemorrhoids without complication Bleeding hemorrhoids Lower abdominal pain Diverticular disease Surgical History H/O hernia repair History of ileostomy History of colon resection Family History Father History of stomach ulcers Social History Alcohol intake: never Comment: counts correct Patient Tobacco Use Status: Never used Tobacco Current occupational status: employed Current occupation: [employer]/ right hand dominant Review of Systems Const All systems reviewed & are unremarkable except as noted in HPI and below Physical Exam Const General: no acute distress and alert Orientation/consciousness: patient oriented x3 Neuro General: patient oriented x3 Extrem Other: The patient was alert oriented and in no acute distress The incision is healing well with no erythema drainage or evidence of infection. Sutures removed and Steri-Strips applied He can make a fist and extend all his digits Sensation is improved and now normal in the median nerve distribution of the left hand Cap refill is brisk Nerve Conduction Study: IMPRESSION: 1. This is an abnormal study. 2. There is electrodiagnostic evidence for bilateral moderate-severe median neuropathy at the wrist, consistent with carpal tunnel syndrome. 3. There is no electrodiagnostic evidence for ulnar neuropathy, brachial plexopathy, or cervical radiculopathy. Ratna Campbell MD, JEANA 09/19/23 Psych Appearance: grossly normal Affect: normal affect Attitude: cooperative Assessment & Plan Assessment & Plan (1) Carpal tunnel syndrome of left wrist: Code(s): G56.02 - Carpal tunnel syndrome, left upper limb Category: Medical (2) Carpal tunnel syndrome of right wrist: Code(s): G56.01 - Carpal tunnel syndrome, right upper limb Category: Medical Plan Assessment & Plan: 1. Left carpal tunnel syndrome, S/P release DOS: 03/02/24 Pre-operative symptoms intermittent, but daily, worse at night Now with normal sensation and good resolution of his nighttime symptoms The patient appears to be doing well post-operatively I educated him about the post-operative course I explained the signs and symptoms of infection I discussed activity modifications, he is to lift nothing heavier than a cellphone for the next two weeks He will perform gentle ROM exercises at home He should avoid any underwater activities for the next 5 days He should gently massage about the incision site to reduce the risk of hypersensitivity He can follow up prn 2. Right carpal tunnel syndrome, moderate-severe Symptoms intermittent, but daily, worse at night He would like to discuss surgery but is unsure if he would have time off of work I explained the risks of delaying treatment, if his symptoms increase in frequency or severity he should follow up to discuss treatment options 3. Left basal joint OA I discussed the importance of maintaining his motion and activity modification. He should limit or avoid any heavy or repetitive gripping activities when possible. He will take time to consider the possibility of steroid injections in the future if his symptoms persist or worsen. Scribed for Debbie Mcdonald MD by Yao Wills, biomedical instrument technician, on 03/17/24 at 12:10 PM, EST. Scribe Plan - Not visible on output: Scribed for Debbie Mcdonald MD by Yao Wills biomedical instrument technician, on [ ] at [ ], EST. Coding Level of Care Code Global (90427) Diagnoses Carpal tunnel syndrome of left wrist G56.02 Carpal tunnel syndrome of right wrist G56.01
== END 2024-03-17 12:17 | disposition home or self-care (01) ==
PROVIDERS: Visit Provider Orthopaedic Surgery
DX: G56.03 Carpal tunnel syndrome, bilateral upper limbs (principal)
CPT/HCPCS: 99024

== ENCOUNTER → 2024-03-17 11:49 | Outpatient (BNVA) | payer OTHER, SELFPAY | PROVIDERS: Visit Provider Orthopaedic Surgery ==